=== PATIENT | female | born 1975 | race Caucasian/White ===

== ENCOUNTER → 2018-11-20 | Outpatient (CLI) | payer BC ==
[~2018-11-20] MED LIST: 0.9 % SODIUM CHLORIDE 10 ML DISP.SYRIN. ID ONE; GADOTERATE 5 MMOL/10ML VIAL. INT ART ONE; IOHEXOL 300 MG/ML 50 ML VIAL. INT ART ONE; LIDOCAINE 1% Multi-Dose 20 ML VIAL. ID ONE
--- NOTE | 2018-11-20 15:32 | KCIC ---
STUDY: MRI arthrogram of the right shoulder INDICATION: Prior hyperextension injury. Persistent right shoulder pain. COMPARISON: None available. TECHNIQUE: Multiplanar MR imaging of the right shoulder performed after the intra-articular injection of contrast material. The injection portion of the procedure is detailed in a separate report. FINDINGS: Despite multiple repeat imaging attempts, the examination remains significantly degraded by motion artifact. AC joint: Mild AC joint arthrosis. Small amount of fluid within the subacromial subdeltoid bursa that is only seen on the T2 sequences. Rotator cuff: No focal rotator cuff defect containing injected contrast to suggest an articular sided tear. Though degraded by motion, there appears to be a thin interstitial tear of the mid supraspinatus at and just medial to the footprint, image 16 series 7, involving approximately 20% of the tendon cross-sectional thickness. This area measures approximately 7 mm AP and extends mediolateral by approximately 10 mm. Background mild supraspinatus tendinosis. The infraspinatus, teres minor and subscapularis are intact. Normal rotator cuff musculature signal and bulk. Labrum: No discrete tear. Long head biceps tendon: Intact and normally located. Cartilage: No focal chondral defect identified. Bones: No acute fracture. Marrow signal is within normal limits. Miscellaneous: Mild edema-like signal in the region of the rotator interval. Impression: 1. Despite multiple repeat imaging attempts, the examination remains significantly degraded by motion artifact. 2. Taking into consideration motion degradation, no high-grade or full-thickness rotator cuff tear is seen. Suspected thin interstitial tear of the mid supraspinatus at and just medial to the footprint involving approximately 20% tendon cross-sectional thickness and measuring 7 mm AP by 10 mm mediolateral. Mild background supraspinatus tendinosis. Normal rotator cuff muscular bulk. 3. Intact labrum, long head biceps tendon and articular cartilage. 4. Mild nonspecific edema-like signal at the rotator interval. Note is made that this appearance can be seen in the setting of adhesive capsulitis for which clinical correlation is recommended. 5. Mild AC joint arthrosis and mild subacromial subdeltoid bursitis. Electronically signed by: TRISH VALDERRAMA MD (11/20/2018 3:30 PM) [id number]
--- NOTE | 2018-11-21 08:41 | KCIC ---
Study: Fluoroscopically guided arthrogram of the right shoulder for MRI Indication: Persistent right shoulder pain. Hyperextension injury. Contrast: 5 cc Omnipaque 300 Technique: A timeout was performed prior to beginning the procedure in order to confirm patient identity and laterality of the injection. The risks, benefits and alternatives of the procedure were discussed. Utilizing sterile technique, fluoroscopic guidance and local anesthesia with 1% lidocaine, the right shoulder joint was accessed utilizing a 22-gauge, 3.5" spinal needle. Confirmation of needle position was obtained with a small amount of radiopaque contrast. Subsequently, approximately 12 cc of mixture containing 5 cc Omnipaque 300, 5 cc lidocaine, 10 cc saline and 0.1 cc Dotarem was injected. There were no immediate post procedure complications. Fluoroscopy time: 14 seconds Number of images obtained: 1 Impression: Technically successful fluoroscopic guided arthrogram of the right shoulder joint without immediate postprocedure complication. Electronically signed by: TRISH VALDERRAMA MD (11/21/2018 8:38 AM) [email or web address]
== END | disposition home or self-care (01) ==
LOC: KCIC 12:34
PROVIDERS: ATTEND Orthopaedic Surgery
DX: M19.011 Primary osteoarthritis, right shoulder (principal); M75.51 Bursitis of right shoulder; Z90.710 Acquired absence of both cervix and uterus; Z90.49 Acquired absence of other specified parts of digestive tract
CPT/HCPCS: 73040; 73222; A9575; Q9967

== ENCOUNTER → 2018-11-26 | Outpatient (CLI) | payer BC ==
--- NOTE | 2018-11-26 16:55 | KCIC ---
CERVICAL SPINE WO CONTRAST DATE: 11/26/2018 2:00 PM INDICATION: Bilateral upper extremity numbness. Right shoulder pain. TECHNIQUE: Multiplanar multisequence magnetic resonance imaging of the cervical spine was performed without administration of intravenous contrast using the standard cervical spine protocol. COMPARISON: None. FINDINGS: The cervical spine is normally aligned. No acute fracture. Mild multilevel degenerative disc desiccation and disc height loss. Small amount of increased T2/STIR signal in the posterior elements of T2 likely relates to atypical hemangioma or some degenerative edema. The spinal cord is normal in signal intensity. On the limited views of the cranial cavity and brain, the cerebellum and armin have normal morphology and signal characteristics. No Chiari malformation. No soft tissue abnormality. Normal signal voids are present in the vertebral arteries. C2-3: Moderate left facet arthropathy. Moderate neural foraminal narrowing. The significance spinal stenosis. C3-4: Mild left facet arthropathy. Mild left neural foraminal narrowing. No central spinal stenosis. C4-5: Mild left facet arthropathy. Uncovertebral hypertrophy. Mild left neural foraminal narrowing. No significant spinal stenosis. C5-6: Uncovertebral hypertrophy. Mild facet arthropathy. Mild left neural foraminal narrowing. No significant spinal stenosis. C6-7: No significant spinal canal stenosis or neural foraminal narrowing. C7-T1: No significant spinal canal stenosis or neural foraminal narrowing. IMPRESSION: Mild to moderate cervical spondylosis, detailed level by level above. No high-grade spinal canal narrowing. Electronically signed by: Hosea Brown MD (11/26/2018 4:52 PM) [id number]
== END | disposition home or self-care (01) ==
LOC: KCIC MRI 13:32
PROVIDERS: ATTEND Orthopaedic Surgery
DX: M47.892 Other spondylosis, cervical region (principal); M12.88 Other specific arthropathies, not elsewhere classified, other specified site; M48.02 Spinal stenosis, cervical region; M50.30 Other cervical disc degeneration, unspecified cervical region
CPT/HCPCS: 72141